=== PATIENT | female | born 1950 | race Caucasian/White ===

== ENCOUNTER 2019-11-02 16:14 | Outpatient (CLI) | payer MEDICARE, OTHER, SELFPAY ==
--- NOTE | 2019-11-02 | US_ITS ---
WS: [id number] ULTRASOUND RENAL TECHNIQUE: Ultrasound examination of both kidneys. CLINICAL INFORMATION: RT SIDED ABD PAIN COMPARISON: None. FINDINGS: RIGHT: 6 mm nonobstructing right upper pole calculus Right kidney is normal in size and appearance. Echogenicity: Normal Hydronephrosis: None. Perinephric fluid: None. Right kidney measures: 11.4 cm x 3.4 cm x 4.6 cm. LEFT: Left kidney is normal in size and appearance. Echogenicity: Normal Hydronephrosis: None. Perinephric fluid: None. Left kidney measures: 10.4 cm x 4.3 cm x 4.3 cm. Normal visualized aorta. Normal bladder. US/US renal BI* [id number] IMPRESSION: 1. No hydronephrosis in either kidney. 2. Small nonobstructing calculi upper pole right kidney the largest measuring 6 mm
== END 2019-11-02 16:15 | disposition home or self-care (01) ==
LOC: RADWPI 16:15
PROVIDERS: Family Provider Family Medicine; Visit Provider Family Medicine
DX: N20.0 Calculus of kidney (principal)

== ENCOUNTER 2021-12-13 10:36 | Emergency (ER) | payer MEDICARE, OTHER, SELFPAY ==
[2021-12-13 10:42] VITALS: BP 180/115; PULSE 65; RESP 18; TEMP 36.5; O2SAT 100; BMI 29.0
--- NOTE | 2021-12-13 10:55 | CTR_ITS ---
PROCEDURE INFORMATION: Exam: CT Head Without Contrast Exam date and time: 12/13/2021 10:55 AM Age: 71 years old Clinical indication: Fall on ice with blunt trauma. Hit head. Confused. TECHNIQUE: Imaging protocol: Computed tomography of the head without contrast. Radiation optimization: All CT scans at this facility use at least one of these dose optimization techniques: automated exposure control; mA and/or kV adjustment per patient size (includes targeted exams where dose is matched to clinical indication); or iterative reconstruction. COMPARISON: No relevant prior studies available. RADIATION DOSE METRICS: Total DLP (mGy-cm): 810.61 FINDINGS: Brain: There is possible trace subarachnoid hemorrhage in the high right frontoparietal region (series 2, images 40 and 41). This could be artifactual. Recommend close interval follow-up CT brain in 4-6 hours to reassess. No mass, mass effect or midline shift. There is no evidence of acute large vessel infarct. There is minimal patchy subcortical and periventricular hypodensity, most commonly associated with small vessel ischemic disease of indeterminate age. The posterior fossa is grossly unremarkable; however, it is partially obscurred by beam hardening artifact. Cerebral ventricles: The ventricles are normal in configuration. Paranasal sinuses: The visualized paranasal sinuses are clear. Mastoid air cells: No mastoid effusion. Orbital cavity: The visualized orbits are unremarkable. Bones/joints: No acute fracture is seen. CT/CT head wo con* [id number] IMPRESSION: 1. Possible trace subarachnoid hemorrhage in the high right frontoparietal region. This could be artifactual. Recommend close interval follow-up CT brain in 4-6 hours to reassess. 2. Minimal presumed small vessel ischemic disease of indeterminate age.
--- NOTE | 2021-12-13 10:58 | ED_ITS ---
HPI - Fall General: Chief Complaint: Fall Stated Complaint: Fall Time Seen by Provider: 12/13/21 10:58 Source: patient Mode of arrival: ambulatory History of Present Illness: 71-year-old female presents emergency room after a fall on the ice. She fell and hit her head she not break her fall. She cannot recall the details she is nauseated nauseated but has not vomited she is not on any anticoagulants. Minimal neck discomfort no pain in any of her extremities no abdominal or chest pain. MD complaint: fall Onset (ago): minute(s) Fall from: standing Fall witnessed: yes, by family Place fall occurred: home Loss of consciousness: Yes Prolonged down time: no Symptoms prior to fall: none Context: tripped/slipped Location of injury: head Associated symptoms-after fall: Denies abdominal pain, chest pain, confusion, difficulty walking, headache(s), hematuria, lightheadedness, neck pain, numbness, short of breath, vertigo or weakness Review of Systems Const: Denies: fever(s), chills, body aches, change in appetite, fatigue or malaise ENMT: Denies: throat pain, ear or mastoid pain, nasal discharge or nasal congestion Card: Denies: chest pain or lightheadedness Resp: Denies: dyspnea, productive cough or non-productive cough GI: Denies: abdominal pain : Denies: hematuria Musc: Denies: neck pain Skin/Breast: Denies: rash or pruritus Neuro: Denies: headache(s), difficulty walking, vertigo or confusion Physical Exam Const: COMMON NORMALS: no acute distress GENERAL APPEARANCE: cooperative and comfortable ORIENTATION/CONSCIOUSNESS: Yes awake, Yes oriented to person, Yes oriented to place and Yes oriented to time HENMT: COMMON NORMALS: normocephalic, atraumatic, hearing grossly normal bilaterally, external ears normal, EAC's normal, TM's normal bilaterally, Normal nasal mucous membranes and turbinates present, moist oral mucous membranes and oropharynx normal HEAD & SCALP: normocephalic and atraumatic NOSE: Normal nasal mucous membranes and turbinates present EXTERNAL EAR: Yes external ears normal EXTERNAL AUDITORY CANAL: EAC's normal TYMPANIC MEMBRANE: TM's normal bilaterally Eye: COMMON NORMALS: Equal, round and reactive pupils present, EOMs intact bilaterally, conjunctivae normal and no scleral icterus CONJUNCTIVA: Yes conjunctivae normal PUPIL: Yes Equal, round and reactive pupils present Neck/C-Spine: COMMON NORMALS: full ROM, no lymphadenopathy, supple and no JVD Lymph: LYMPHATIC: no lymphadenopathy noted and no lymphedema noted Resp: COMMON NORMALS: normal respiratory effort, No retractions, No use of accessory muscles and clear to auscultation bilaterally AUSCULTATION: clear to auscultation bilaterally Cardio: COMMON NORMALS: no JVD, regular rate, regular rhythm and No murmurs present (Cardio) RATE: regular rate RHYTHM: regular rhythm GI: COMMON NORMALS: Soft to palpation and No hepatosplenomegaly present AUSCULTATION: Yes normoactive bowel sounds PALPATION: Yes Soft to palpation, No Tenderness to palpation present (GI), No Guarding due to palpation present (GI) and Yes No hepatosplenomegaly present Extremity: COMMON NORMALS: normal to inspection, capillary refill normal, no clubbing, cyanosis or edema, no calf tenderness and no pedal edema Neuro: SENSORIUM/ORIENTATION: Yes oriented to person, Yes oriented to place and Yes oriented to time Skin: COMMON NORMALS: no rashes or lesions noted GENERAL SKIN EXAM: no rashes or lesions noted Course Vital Signs: Vital signs: Vital Signs Temperature 98.4 F 12/13/21 16:16 Pulse Rate 78 12/13/21 16:16 Respiratory Rate 14 12/13/21 16:16 Blood Pressure 134/73 12/13/21 16:16 Pulse Oximetry 97 12/13/21 16:16 MDM - Fall Medical Decision Making Repeat CT of the head shows no acute bleed. Discussed with the radiologist he believes the first 1 was a artifact. Discharge home discussed usual course of recovery from current caution. Medical Records I reviewed the patient's medical records. Lab Data I reviewed the patient's lab results. : 12/13/21 11:30 12/13/21 11:30 Radiology Impressions Cervical Spine CT 12/13/21 10:59 IMPRESSION: 1. No acute cervical fracture. 2. There is straightening of the normal cervical lordosis which may relate to patient positioning or muscle spasm. 3. Gapi-dr-cpzueuuk degenerative disc disease. Head CT 12/13/21 16:47 IMPRESSION: No acute intracranial abnormality. ADDENDUM: 12/13/[id number] Arnold on the phone. Previously describe equivocal right frontal parietal lobe subarachnoid hemorrhage is not seen on current exam and may have been artifactual. Laboratory Results WBC 9.2 10^3/uL (4.0-10.0) 12/13/21 11:30 RBC 5.12 10^6/uL (4.1-5.3) 12/13/21 11:30 Hgb 14.7 g/dL (11.5-15.3) 12/13/21 11:30 Hct 45.4 % (37.0-47.0) 12/13/21 11:30 MCV 88.7 fl (81-99) 12/13/21 11:30 MCH 28.7 pg (28.0-34.0) 12/13/21 11: MCHC 32.4 g/dL (30.0-36.0) 12/13/21 11: RDW 13.9 % (12.1-15.1) 12/13/21 11:30 Plt Count 276 10^3/cmm (130-400) 12/13/21 11:30 MPV 10.8 fL (7.4-10.4) H 12/13/21 11:30 Neut % (Auto) 76.5 % 12/13/21 11:30 Lymph % (Auto) 16.3 % 12/13/21 11:30 [place] % (Auto) 6.1 % 12/13/21 11:30 Eos % (Auto) 0.4 % 12/13/21 11:30 Baso % (Auto) 0.4 % 12/13/21 11:30 Neut # (Auto) 7.06 10^3/uL (1.8-7.7) 12/13/21 11:30 Lymph # (Auto) 1.5 10^3/uL (0.8-4.8) 12/13/21 11:30 [place] # (Auto) 0.6 10^3/uL (0.2-0.9) 12/13/21 11:30 Eos # (Auto) 0.0 10^3/uL (0.0-0.8) 12/13/21 11:30 Baso # (Auto) 0.0 10^3/uL (0.0-0.1) 12/13/21 11:30 Nucleated RBC % (auto) 0 % 12/13/21 11:30 Nucleated RBCs # 0.0 /100WBC 12/13/21 11:30 Sodium 138 mmol/L (136-145) 12/13/21 11:30 Potassium 4.0 mmol/L (3.5-5.1) 12/13/21 11:30 Chloride 103 mmol/L (98-107) 12/13/21 11:30 Carbon Dioxide 25 mmol/L (22-29) 12/13/21 11:30 Anion Gap 14.0 (5-19) 12/13/21 11:30 BUN 21 mg/dL (8-23) 12/13/21 11:30 Creatinine 0.7 mg/dL (0.5-0.9) 12/13/21 11:30 GFR Calculation 82.7 mL/min (90-130) L 12/13/21 11:30 Glucose 96 mg/dL (65-115) 12/13/21 11:30 Calculated Osmolality 289 mOsm/kg (285-295) 12/13/21 11:30 Calcium 10.1 mg/dL (8.5-10.5) 12/13/21 11:30 Total Bilirubin 0.3 mg/dL (0.15-1.2) 12/13/21 11:30 AST 18 U/L (0-32) 12/13/21 11:30 ALT 19 U/L (0-33) 12/13/21 11:30 Alkaline Phosphatase 66 IU/L (35-105) 12/13/21 11:30 Total Protein 7.9 g/dL (6.6-8.7) 12/13/21 11:30 Albumin 5.0 g/dL (3.5-5.2) 12/13/21 11:30 Globulin 2.9 g/dL (1.3-4.6) 12/13/21 11:30 Urine Color Straw (Yellow) 12/13/21 11:40 Urine Appearance Clear (CLEAR) 12/13/21 11:40 Urine pH 7 (5-7) 12/13/21 11:40 Ur Specific [place] 1.005 (1.005-1.030) 12/13/21 11:40 Urine Protein Neg (Negative) 12/13/21 11:40 Urine Glucose (UA) Norm (Normal) 12/13/21 11:40 Urine Ketones Negative (Negative) 12/13/21 11:40 Urine Blood Neg (Negative) 12/13/21 11:40 Urine Nitrate Negative (Negative) 12/13/21 11:40 Urine Bilirubin Neg (Negative) 12/13/21 11:40 Urine Urobilinogen Norm mg/dL (Negative) 12/13/21 11:40 Ur Leukocyte Esterase Negative (Negative) 12/13/21 11:40 Discharge Plan Discharge Patient Disposition: Home Clinical Impression: Concussion with loss of consciousness Condition: Stable Prescriptions: No Action Vitamin C 1,000 mg Tablet 500 mg PO DAILY 0RF meloxicam 15 mg tablet 15 mg PO DAILY 0RF famotidine 20 mg tablet 20 mg PO BID 0RF losartan-hydrochlorothiazide 50-12.5 mg tablet 1 tab PO DAILY 0RF Vitamin D3 10 mcg (400 unit) Tablet 10 mcg PO DAILY 0RF Metamucil 0.4 gram Capsule 1.2 g PO DAILY 0RF Discharge Orders: Discharge ED (Routine); Ordered 12/13/21 Ordered By: Kuldip Arnold Referrals: Jarred Lea MD [Family Provider] - Discharge Diet: Usual diet Discharge Activity: Limit activity as instructed Patient Instructions: Opioid Safety Activity Restrictions/Additional Instructions: Follow-up with your primary care doctor within the next week. Coding Level of Care Code ED [employer] for Mikala Fwadama Exam Comprehensive
--- NOTE | 2021-12-13 10:59 | CTR_ITS ---
PROCEDURE INFORMATION: Exam: CT Cervical Spine Without Contrast Exam date and time: 12/13/2021 10:59 AM Age: 71 years old Clinical indication: Fall with blunt trauma and neck pain. TECHNIQUE: Imaging protocol: Computed tomography images of the cervical spine without contrast. Radiation optimization: All CT scans at this facility use at least one of these dose optimization techniques: automated exposure control; mA and/or kV adjustment per patient size (includes targeted exams where dose is matched to clinical indication); or iterative reconstruction. COMPARISON: CT head wo con* [id number] 12/13/2021 11:12 AM RADIATION DOSE METRICS: Total DLP (mGy-cm): 622.6 FINDINGS: A torus palatinus is incidentally noted. There is straightening of the normal cervical lordosis which may relate to patient positioning or muscle spasm. Grade 1 anterolistheses of C2, C3 and C4. No prevertebral soft tissue swelling is seen. Zswo-vx-dextytmi degenerative disc disease No acute fracture is identified. The atlantoaxial interval and craniocervical junction are maintained. Small, scattered cervical lymph nodes are noted. There is scarring in the lung apices. CT/CT cervical spin wo con* [id number] IMPRESSION: 1. No acute cervical fracture. 2. There is straightening of the normal cervical lordosis which may relate to patient positioning or muscle spasm. 3. Ijgo-ly-fqogzbwm degenerative disc disease.
[2021-12-13 11:47] VITALS: BP 155/99; PULSE 64; RESP 14; TEMP 36.7; O2SAT 99
[2021-12-13 11:48] LABS: Basophils % 0.4 %; Eosinophils % 0.4 %; Hematocrit 45.4 % (37.0-47.0); Hemoglobin 14.7 g/dL (11.5-15.3); Lymphocytes # 1.5 10^3/uL (0.8-4.8); Lymphocytes % 16.3 %; Mean Corpuscular HGB Conc 32.4 g/dL (30.0-36.0); Mean Corpuscular Hemoglobin 28.7 pg (28.0-34.0); Mean Corpuscular Volume 88.7 fl (81-99); Mean Platelet Volume 10.8 fL (7.4-10.4); Monocytes # 0.6 10^3/uL (0.2-0.9); Monocytes % 6.1 %; Neutrophils # 7.06 10^3/uL (1.8-7.7); Neutrophils % 76.5 %; Nucleated Red Blood Cells % 0 %; Platelet Count 276 10^3/cmm (130-400); Red Blood Count 5.12 10^6/uL (4.1-5.3); Red Cell Distribution Width 13.9 % (12.1-15.1); White Blood Count 9.2 10^3/uL (4.0-10.0)
[2021-12-13 11:53] LABS: Add Urine Microscopic? NO; Charge for UA Resulting for Rev
[2021-12-13 11:58] LABS: Blood Urine Neg (Negative); Glucose Urine UA Norm (Normal); Ketones Urine Negative (Negative); Nitrate Urine Negative (Negative); Protein Urine Neg (Negative); Specific Gravity, Urine 1.005 (1.005-1.030); Urine Appearance Clear (CLEAR); Urine Color Straw (Yellow); pH Urine 7 (5-7)
[2021-12-13 11:59] LABS: Bilirubin Urine Neg (Negative); Leukocyte Esterase Urine Negative (Negative); Urobilinogen Urine Norm (Negative)
[2021-12-13 12:11] LABS: Alanine Aminotransferase 19 U/L (0-33); Alkaline Phosphatase 66 IU/L (35-105); Aspartate Amino Transferase 18 U/L (0-32); Blood Urea Nitrogen 21 mg/dL (8-23); Calcium 10.1 mg/dL (8.5-10.5); Carbon Dioxide 25 mmol/L (22-29); Chloride 103 mmol/L (98-107); Creatinine Clr Calc Pharmacy 70.4897; Globulin 2.9 g/dL (1.3-4.6); Glomerular Filtration Rate 82.7 mL/min (90-130); Glucose 96 mg/dL (65-115); Osmolality Calculated 289 mOsm/kg (285-295); Sodium 138 mmol/L (136-145); Total Bilirubin 0.3 mg/dL (0.15-1.2); Total Protein 7.9 g/dL (6.6-8.7)
[2021-12-13 13:49] VITALS: BP 156/85; PULSE 79; RESP 15; TEMP 36.6; O2SAT 99
[2021-12-13] MEDS: acetaminophen 500 mg Tablet 1000 MG PO (15:55)
[2021-12-13 16:16] VITALS: BP 134/73; PULSE 78; RESP 14; TEMP 36.9; O2SAT 97
--- NOTE | 2021-12-13 16:47 | CTR_ITS ---
PROCEDURE INFORMATION: Exam: CT Head Without Contrast Exam date and time: 12/13/2021 4:47 PM Age: 71 years old Clinical indication: Abnormal findings; Abnormal radiologic findings of head/skull; Not specified; Patient HX: 6 hr f/u ? R frontoparietal sah; Additional info: Repeat TECHNIQUE: Imaging protocol: Computed tomography of the head without contrast. Radiation optimization: All CT scans at this facility use at least one of these dose optimization techniques: automated exposure control; mA and/or kV adjustment per patient size (includes targeted exams where dose is matched to clinical indication); or iterative reconstruction. COMPARISON: CT head wo con* [id number] 12/13/2021 11:12 AM RADIATION DOSE METRICS: Total DLP (mGy-cm): 804.54 FINDINGS: Brain: Normal. No hemorrhage. Unremarkable white matter. No mass effect. Cerebral ventricles: No ventriculomegaly. Paranasal sinuses: Visualized sinuses are unremarkable. No fluid levels. Mastoid air cells: Visualized mastoid air cells are well aerated. Bones/joints: Unremarkable. No acute fracture. Soft tissues: Unremarkable. CT/CT head wo con* [id number] IMPRESSION: No acute intracranial abnormality.
[2021-12-13 18:12] VITALS: BP 180/87; PULSE 72; RESP 14; TEMP 36.7; O2SAT 96
[2021-12-13 18:14] VITALS: BP 180/87; PULSE 72; RESP 14; TEMP 36.7; O2SAT 96
== END 2021-12-13 18:10 | disposition home or self-care (01) ==
PROVIDERS: Emergency Provider Family Medicine
DX: S06.0X9A Concussion with loss of consciousness of unspecified duration, initial encounter (principal); W00.0XXA Fall on same level due to ice and snow, initial encounter
CPT/HCPCS: 70450; 72125; 80053; 81003; 85025; 99284

== ENCOUNTER 2025-05-31 18:07 | Outpatient (CLI) | payer MEDICARE, OTHER, SELFPAY ==
--- NOTE | 2025-05-31 15:20 | MM_ITS ---
WS: [id number] BILATERAL SCREENING DIGITAL TOMOSYNTHESIS MAMMOGRAM WITH CAD HISTORY: SCREENING COMPARISON: 09/20/2018 Bilateral CC and MLO views with tomosynthesis and synthetic mammography submitted. Computer aided detection analyzed. Breast composition: There are scattered areas of fibroglandular density. No suspicious masses, microcalcifications or architectural distortion. Bilateral calcifications in each breast. MM/MM scr BI tomosynthesis [id number] IMPRESSION: BI-RADS: 2 - Benign. FOLLOW UP: 1 Year Follow-up
== END 2025-05-31 18:08 | disposition home or self-care (01) ==
LOC: MOBLMAM 18:08
PROVIDERS: PCP Family Medicine; Visit Provider Family Medicine
DX: Z12.31 Encounter for screening mammogram for malignant neoplasm of breast (principal); R92.323 Mammographic fibroglandular density, bilateral breasts; R92.1 Mammographic calcification found on diagnostic imaging of breast
CPT/HCPCS: 77063; 77067